=== PATIENT | female | born 1965 | race Two or more races ===

== ENCOUNTER → 2017-02-05 | Outpatient (CLI) | payer BC | END | disposition disaster alternative care site (69) | LOC: GBCOE 16:00 | DX: Z12.31 Encounter for screening mammogram for malignant neoplasm of breast (principal); Z85.3 Personal history of malignant neoplasm of breast | CPT/HCPCS: G0202 ==

== ENCOUNTER → 2017-02-11 | Outpatient (CLI) | payer BC | END | disposition disaster alternative care site (69) | LOC: GRAD 09:59 | DX: N63 Unspecified lump in breast (principal) ==